=== PATIENT | female | born 1965 | race Two or more races ===

== ENCOUNTER 2020-10-29 21:26 | Emergency (ER) | payer OTHER ==
[~2020-10-29] VITALS: Ht 157.5 cm; Wt 65.3 kg
[2020-10-29] MEDS ORDERED: MEDROLPACK PO (22:44)
[2020-10-29] MEDS ORDERED: CAPSAICIN42.5 GM TOP (22:44)
== END 2020-10-30 | disposition home or self-care (01) ==
LOC: ER 21:26
DX: R21 Rash and other nonspecific skin eruption (principal)